=== PATIENT | male | born 1955 | race Caucasian/White ===

== ENCOUNTER 2016-12-25 17:40 | Inpatient (IN) | payer MEDICARE, OTHER ==
[~2016-12-25] VITALS: Ht 180.3 cm; Wt 67.9 kg
[~2016-12-25 17:40] MED LIST: ALBU8HFA4 IH; ASPI-1182 PO; INSLAN SQ; METF10002 PO; RISP3 PO; SERT50TA12 PO; SITA100 PO; VITAD5000 PO
[2016-12-25 18:08] LABS: BASOPHILS % (AUTO) 0.5 % (0.0-2.0); EOSINOPHILS % (AUTO) 0.2 % (1.0-6.0); HEMATOCRIT 36.8 % (41-53); HEMOGLOBIN 12.6 g/dL (13.5-17.5); LYMPHOCYTES # (AUTO) 1.3 K/uL (1.0-4.8); LYMPHOCYTES % (AUTO) 15.7 % (22.0-44.0); MEAN CORPUSCULAR HEMOGLOBIN 33.8 pg (26.0-34.0); MEAN CORPUSCULAR HGB CONC 34.3 G/dL (31.0-37.0); MEAN CORPUSCULAR VOLUME 99 fL (80-100); MONOCYTES # (AUTO) 0.6 K/uL (0.1-1.0); MONOCYTES % (AUTO) 6.7 % (2.0-9.0); NEUTROPHILS # (AUTO) 6.5 K/uL (1.8-7.7); NEUTROPHILS % (AUTO) 76.9 % (40.0-70.0); PLATELET COUNT (AUTO) 208 K/uL (150-450); RED BLOOD CELL COUNT(AUTO) 3.73 MIL/uL (4.50-5.90); RED CELL DISTRIBUTION WIDTH 13.4 % (11.5-14.5); WHITE BLOOD COUNT (AUTO) 8.5 K/uL (4.5-11.0)
[2016-12-25] MEDS ORDERED: INSNOV SQ (18:11)
[2016-12-25 18:23] LABS: ALANINE AMINOTRANSFERASE 23 U/L (12-78); ALBUMIN 3.2 g/dL (3.4-5.0); ASPARTATE AMINOTRANSFERASE 12 U/L (15-37); BILIRUBIN,TOTAL 0.1 mg/dL (0.1-1.0); CALCIUM, TOTAL 9.2 mg/dL (8.8-10.5); CHLORIDE 104 mmol/L (98-107); CREATININE 0.77 mg/dL (0.60-1.30); GLOMERULAR FILTR. RATE CALC > 60 mL/min (>60); POTASSIUM 3.5 mmol/L (3.5-5.1); SODIUM SERUM 140 mmol/L (136-145); TOTAL PROTEIN, SERUM 6.5 g/dL (6.4-8.2); UREA NITROGEN, BLOOD 12 mg/dL (7-18)
[2016-12-25 18:29] LABS: ANION GAP 10 mmol/L (8-16); CARBON DIOXIDE 26 mmol/L (22-29)
[2016-12-25] MEDS ORDERED: DEXTROSE 50%-WATER 25 GM/50 ML SYRINGE IVP ONE (18:30)
[2016-12-25] MEDS ORDERED: DEXTROSE 5%-0.45% SODIUM CHL 1,000 ML IV ONE (18:30)
[2016-12-25] MEDS ORDERED: ACETAMINOPHEN 325 MG TABLET PO PRN (18:45)
[2016-12-25] MEDS ORDERED: ONDANSETRON HCL 4 MG/2 ML VIAL IVP PRN ×2 (18:45→22:45)
[2016-12-25] MEDS ORDERED: 0.9% SODIUM CHLORIDE 10 ML SYRINGE IVP PRN ×2 (18:45→22:45)
[2016-12-25 19:08] LABS: GLUCOSE,POINT OF CARE 243 MG/DL (70-110)
[2016-12-25 20:06] VITALS: BP 94/62
[2016-12-25] MEDS ORDERED: DEXTROSE 5%-WATER 1,000 ML IV SCH (22:45)
[2016-12-25] MEDS ORDERED: OxyCODONE HCL/ACETAMINOPHEN 5-325 MG TABLET PO PRN (22:45)
[2016-12-25 23:52] LABS: GLUCOSE COMMENT 1 Juice/Food/D50 Given; GLUCOSE,POINT OF CARE 83 MG/DL (70-110)
[2016-12-25 23:52] LABS: GLUCOSE,POINT OF CARE 161 MG/DL (70-110)
[2016-12-25] MEDS: DOCUSATE SODIUM 100 MG CAPSULE PO SCH (23:53)
[2016-12-25] MEDS: RisperiDONE 3 MG TABLET PO SCH (23:53)
[2016-12-26] VITALS (8 sets, daily range): BP systolic 108–134; BP diastolic 55–75
[2016-12-26 01:42] LABS: GLUCOSE COMMENT 1 Juice/Food/D50 Given; GLUCOSE,POINT OF CARE 394 MG/DL (70-110)
[2016-12-26 05:33] LABS: GLUCOSE COMMENT 1 Juice/Food/D50 Given; GLUCOSE COMMENT 2 Doctor Notified; GLUCOSE,POINT OF CARE 398 MG/DL (70-110)
[2016-12-26 05:38] LABS: BASOPHILS % (AUTO) 0.5 % (0.0-2.0); EOSINOPHILS % (AUTO) 0.6 % (1.0-6.0); HEMATOCRIT 36.4 % (41-53); HEMOGLOBIN 12.4 g/dL (13.5-17.5); LYMPHOCYTES # (AUTO) 1.9 K/uL (1.0-4.8); LYMPHOCYTES % (AUTO) 27.8 % (22.0-44.0); MEAN CORPUSCULAR HGB CONC 34.1 G/dL (31.0-37.0); MEAN CORPUSCULAR VOLUME 100 fL (80-100); MONOCYTES # (AUTO) 0.6 K/uL (0.1-1.0); MONOCYTES % (AUTO) 9.5 % (2.0-9.0); NEUTROPHILS # (AUTO) 4.2 K/uL (1.8-7.7); NEUTROPHILS % (AUTO) 61.6 % (40.0-70.0); PLATELET COUNT (AUTO) 199 K/uL (150-450); RED BLOOD CELL COUNT(AUTO) 3.66 MIL/uL (4.50-5.90); RED CELL DISTRIBUTION WIDTH 13.7 % (11.5-14.5); WHITE BLOOD COUNT (AUTO) 6.8 K/uL (4.5-11.0)
[2016-12-26] MEDS ORDERED: INSULIN REGULAR, HUMAN 100 UNITS/ML SQ PRN (05:45)
[2016-12-26] MEDS ORDERED: DEXTROSE 50%-WATER 25 GM/50 ML SYRINGE IVP PRN ×2 (05:45→06:15)
[2016-12-26 05:53] LABS: ALANINE AMINOTRANSFERASE 22 U/L (12-78); ALBUMIN 2.9 g/dL (3.4-5.0); ANION GAP 9 mmol/L (8-16); ASPARTATE AMINOTRANSFERASE 10 U/L (15-37); BILIRUBIN,TOTAL 0.2 mg/dL (0.1-1.0); CALCIUM, TOTAL 8.7 mg/dL (8.8-10.5); CARBON DIOXIDE 26 mmol/L (22-29); CHLORIDE 101 mmol/L (98-107); CREATININE 0.73 mg/dL (0.60-1.30); GLOMERULAR FILTR. RATE CALC > 60 mL/min (>60); POTASSIUM 3.3 mmol/L (3.5-5.1); SODIUM SERUM 136 mmol/L (136-145); TOTAL PROTEIN, SERUM 5.6 g/dL (6.4-8.2); UREA NITROGEN, BLOOD 9 mg/dL (7-18)
[2016-12-26] MEDS: INSULIN ASPART 100 UNITS/ML SQ PRN ×4 (06:26→20:49)
[2016-12-26] MEDS: DOCUSATE SODIUM 100 MG CAPSULE PO SCH ×3 (08:23→19:52)
[2016-12-26] MEDS: CHOLECALCIFEROL (VIT D3) 5,000 UNITS CAPSULE PO SCH (08:23)
[2016-12-26] MEDS: SERTRALINE HCL 50 MG TABLET PO SCH ×3 (08:23→09:00)
[2016-12-26] MEDS: OxyCODONE HCL/ACETAMINOPHEN 5-325 MG TABLET PO PRN (08:24)
[2016-12-26] MEDS: ASPIRIN 81 MG EC TABLET PO SCH (08:24)
[2016-12-26] MEDS: PANTOPRAZOLE SODIUM 40 MG/VIAL IVP SCH (08:25)
[2016-12-26 12:27] LABS: GLUCOSE,POINT OF CARE 334 MG/DL (70-110)
[2016-12-26 18:08] LABS: GLUCOSE,POINT OF CARE 268 MG/DL (70-110)
[2016-12-26] MEDS: RisperiDONE 3 MG TABLET PO SCH (19:50)
[2016-12-26] MEDS ORDERED: POTASSIUM CHLORIDE 20 MEQ ER TABLET PO ONE (21:15)
[2016-12-26 22:12] LABS: GLUCOSE COMMENT 1 Received Meds; GLUCOSE,POINT OF CARE 277 MG/DL (70-110)
[2016-12-27 03:39] VITALS: BP 118/64
[2016-12-27] MEDS: INSULIN ASPART 100 UNITS/ML SQ PRN ×4 (05:54→20:28)
[2016-12-27 06:09] LABS: GLUCOSE COMMENT 1 Received Meds; GLUCOSE,POINT OF CARE 235 MG/DL (70-110)
[2016-12-27 07:25] VITALS: BP 126/80
[2016-12-27] MEDS: SERTRALINE HCL 50 MG TABLET PO SCH (09:00)
[2016-12-27] MEDS: CHOLECALCIFEROL (VIT D3) 5,000 UNITS CAPSULE PO SCH (09:02)
[2016-12-27] MEDS: DOCUSATE SODIUM 100 MG CAPSULE PO SCH (09:02)
[2016-12-27] MEDS: OxyCODONE HCL/ACETAMINOPHEN 5-325 MG TABLET PO PRN (09:02)
[2016-12-27] MEDS: ASPIRIN 81 MG EC TABLET PO SCH (09:03)
[2016-12-27] MEDS: PANTOPRAZOLE SODIUM 40 MG/VIAL IVP SCH (09:03)
[2016-12-27 11:10] VITALS: BP 118/71
[2016-12-27 12:27] LABS: GLUCOSE,POINT OF CARE 392 MG/DL (70-110)
[2016-12-27 15:58] VITALS: BP 119/73
[2016-12-27 17:53] LABS: GLUCOSE,POINT OF CARE 401 MG/DL (70-110)
[2016-12-27 19:28] VITALS: BP 104/68
[2016-12-27] MEDS: RisperiDONE 3 MG TABLET PO SCH (19:56)
[2016-12-27] MEDS ORDERED: INSULIN DETEMIR 100 UNITS/ML SQ SCH (21:00)
[2016-12-27 23:12] LABS: GLUCOSE COMMENT 1 Received Meds; GLUCOSE,POINT OF CARE 312 MG/DL (70-110)
[2016-12-27 23:18] VITALS: BP 120/65
[2016-12-28 03:00] VITALS: BP 97/55
[2016-12-28] MEDS: INSULIN ASPART 100 UNITS/ML SQ PRN (05:43)
[2016-12-28 06:52] LABS: GLUCOSE COMMENT 1 Received Meds; GLUCOSE,POINT OF CARE 421 MG/DL (70-110)
[2016-12-28 06:53] LABS: GLUCOSE COMMENT 1 Doctor Notified; GLUCOSE,POINT OF CARE 403 MG/DL (70-110)
[2016-12-28] MEDS ORDERED: INSULIN DETEMIR 100 UNITS/ML SQ ONE (07:00)
[2016-12-28] MEDS ORDERED: INSULIN ASPART 100 UNITS/ML SQ ONE (07:00)
[2016-12-28 07:10] VITALS: BP 124/77
[2016-12-28] MEDS ORDERED: SitaGLIPtin PHOSPHATE 100 MG TABLET PO SCH (09:00)
[2016-12-28] MEDS: SERTRALINE HCL 50 MG TABLET PO SCH (09:00)
[2016-12-28] MEDS: OxyCODONE HCL/ACETAMINOPHEN 5-325 MG TABLET PO PRN (09:07)
[2016-12-28] MEDS: MetFORMIN HCL 500 MG TABLET PO SCH ×2 (09:07→17:57)
[2016-12-28] MEDS: DOCUSATE SODIUM 100 MG CAPSULE PO SCH (09:07)
[2016-12-28] MEDS: PANTOPRAZOLE SODIUM 40 MG/VIAL IVP SCH (09:07)
[2016-12-28] MEDS: CHOLECALCIFEROL (VIT D3) 5,000 UNITS CAPSULE PO SCH (09:07)
[2016-12-28] MEDS: ASPIRIN 81 MG EC TABLET PO SCH (09:11)
[2016-12-28 11:15] VITALS: BP 99/66
[2016-12-28 11:22] LABS: GLUCOSE,POINT OF CARE 85 MG/DL (70-110)
[2016-12-28 15:48] VITALS: BP 100/66
[2016-12-28 18:02] LABS: GLUCOSE,POINT OF CARE 252 MG/DL (70-110)
== END 2016-12-28 19:45 | disposition home or self-care (01) | DRG 638 ==
LOC: EMS 17:42 → 6N 18:54
PROVIDERS: ADMIT Internal Medicine; ATTEND Internal Medicine
DX: E11.649 Type 2 diabetes mellitus with hypoglycemia without coma (principal); E44.0 Moderate protein-calorie malnutrition; E11.40 Type 2 diabetes mellitus with diabetic neuropathy, unspecified; F17.210 Nicotine dependence, cigarettes, uncomplicated; T38.3X5A Adverse effect of insulin and oral hypoglycemic [antidiabetic] drugs, initial encounter; I10 Essential (primary) hypertension; J44.9 Chronic obstructive pulmonary disease, unspecified; F20.9 Schizophrenia, unspecified; Z68.20 Body mass index [BMI] 20.0-20.9, adult; Z79.4 Long term (current) use of insulin; Z88.8 Allergy status to other drugs, medicaments and biological substances; Z79.82 Long term (current) use of aspirin; Z79.899 Other long term (current) drug therapy; Y92.89 Other specified places as the place of occurrence of the external cause
CPT/HCPCS: 82948; 82962; 87081; 93005; 96365; 96375; 99285; C9113; J1815; J7060